=== PATIENT | female | born 1995 | race African-American/Black ===

== ENCOUNTER 2016-09-03 12:59 | Emergency (ER) | payer OTHER ==
[2016-09-03 13:03] VITALS: BP 130/76; PULSE 80; TEMP 98.4; BMI 28.3
[2016-09-03 14:18] LABS: URINE APPEARANCE SLCLOUDY; URINE BILIRUBIN NEGATIVE (NEGATIVE); URINE COLOR YELLOW; URINE GLUCOSE (UA) NEGATIVE (NEGATIVE); URINE KETONE NEGATIVE (NEGATIVE); URINE NITRITE NEGATIVE (NEGATIVE); URINE UROBILINOGEN NEGATIVE E.U./dl (0.2-1.0)
--- NOTE | 2016-09-03 14:50 | PDOC ---
History of Present Illness - General Chief Complaint: Urinary Problem Stated Complaint: NAUSEA, ABD PAIN Time Seen by Provider: 09/03/16 14:40 History Source: Patient Exam Limitations: No Limitations - History of Present Illness Initial Comments: CHIEF COMPLAINT: 21 y/o afebrile female with no significant PMH c/o nausea and dysuria. HISTORY OF PRESENT ILLNESS: The patient states she has had symptoms for a few days and admits she recently had sexual intercourse for the first time and symptoms started afterwards. The patient also admits to frequency. She denies f/c, v/d, abd pain, back pain, hematuria. Vital signs on arrival are within normal limits. REVIEW OF SYSTEMS: GENERAL/CONSTITUTIONAL: No fever/chills. No weakness. No weight change. HEAD, EYES, EARS, NOSE AND THROAT: No change in vision. No ear pain or discharge. No sore throat. CARDIOVASCULAR: No chest pain or shortness of breath. RESPIRATORY: No cough, wheezing, or hemoptysis. GASTROINTESTINAL: +nausea. No abd pain, nausea, vomiting, diarrhea. GENITOURINARY: No dysuria, frequency, or change in urination. MUSCULOSKELETAL: No joint or muscle swelling or pain. No neck or back pain. SKIN: No rash or easy bruising. NEUROLOGIC: No headache, vertigo, loss of consciousness, or loss of sensation. PHYSICAL EXAM: GENERAL: The patient is awake, alert, and fully oriented, in no acute distress. She is well appearing, ambulatory, and in NAD. HEAD: Normal with no signs of trauma. ENT: Pupils equal, round and reactive to light, extraocular movements intact, sclera anicteric, conjunctiva clear. Neck supple. LUNGS: Clear to auscultation bilaterally. Normal excursion. No respiratory distress or use of accessory muscles. CV: RRR, S1/S2, no MRG. Cap refill < 2 sec. ABDOMEN: Soft, non-distended, minimal TTP of suprapubic region, no hepatomegaly or splenomegaly, no masses. BACK: No CVA TTP b/l. EXTREMITIES: Normal range of motion, no edema. NEUROLOGICAL: Normal speech, normal gait. CN II-XII grossly intact. PSYCH: Normal mood, normal affect. SKIN: Warm, dry, normal turgor, no rashes or lesions noted. Past History - Past Medical History Allergies/Adverse Reactions: Allergies Allergy/AdvReac Type Severity Reaction Status Date / Time No Known Allergies Allergy Verified 09/03/16 13:04 Home Medications: Ambulatory Orders Hydrocodone Bit/Homatropine [Hycodan Syrup] 5 ml PO Q4HWA #120 syrup 04/17/14 Cephalexin Monohydrate [Keflex -] 500 mg PO BID #14 capsule 09/03/16 Other medical history: PATIENT DENIES MEDICAL HISTORY - Psycho/Social/Smoking Cessation Hx Anxiety: No Suicidal Ideation: No Smoking History: Never smoked Have you smoked in the past 12 months: No Hx Alcohol Use: Yes Drug/Substance Use Hx: No Substance Use Type: None *Physical Exam - Vital Signs Last Vital Signs Temp Pulse Resp BP Pulse Ox 98.4 F 80 18 130/76 99 09/03/16 13:01 09/03/16 13:01 09/03/16 13:01 09/03/16 13:01 09/03/16 13:01 ED Treatment Course - ADDITIONAL ORDERS Additional order review: Laboratory Results 09/03/16 14:00 Urine HCG, Qual Negative Medical Decision Making - Medical Decision Making A/P: 21 y/o afebrile female with UTI symptoms. Plan is as follows: 1. UA/culture/hcg UA + for UTI. Will send RX for keflex. Instructed patient to take entire 7 days, drink at least 64oz of water daily and return to the ER with any worsening or concerning symptoms. The patient verbalizes understanding of all instructions, has no further questions and is awaiting discharge. *DC/Admit/Observation/Transfer Diagnosis at time of Disposition: UTI (urinary tract infection) Qualifiers: Urinary tract infection type: acute cystitis Hematuria presence: with hematuria Qualified Code(s): N30.01 - Acute cystitis with hematuria - Discharge Dispostion Disposition: HOME Condition at time of disposition: Good - Prescriptions Prescriptions: Cephalexin Monohydrate [Keflex -] 500 mg PO BID #14 capsule - Patient Instructions Printed Discharge Instructions: DI for Urinary Tract Infection (UTI) Additional Instructions: Discharge Instructions: -An antibiotic was sent to your pharmacy for Urinary Tract Infection; please take entire 7 days -Drink at least 64oz of water daily -REturn to the ER with any worsening or concerning symptoms
[2016-09-03 14:56] LABS: URINE BLOOD 3+ (NEGATIVE); URINE LEUK ESTERASE 2+ (NEGATIVE); URINE PROTEIN 1+ (NEGATIVE)
[2016-09-03 15:48] LABS: URINE BACTERIA RARE /hpf (NONE SEEN); URINE MUCUS RARE; URINE RBC 284 /hpf (0-3); URINE WBC 221 /hpf (3-5)
== END 2016-09-03 15:06 | disposition home or self-care (01) ==
LOC: JERFT 12:59
DX: N30.01 Acute cystitis with hematuria (principal); B96.89 Other specified bacterial agents as the cause of diseases classified elsewhere
CPT/HCPCS: 81003; 81015; 84703; 87086; 87186; 99281-25

== ENCOUNTER 2016-12-07 20:53 | Emergency (ER) | payer OTHER ==
[2016-12-07 21:09] VITALS: BP 118/67; PULSE 71; TEMP 98.7; BMI 28.3
--- NOTE | 2016-12-07 21:43 | PDOC ---
History of Present Illness - General Chief Complaint: Cold Symptoms Stated Complaint: CONgESTION Time Seen by Provider: 12/07/16 21:27 History Source: Patient Exam Limitations: No Limitations - History of Present Illness Initial Comments: 12/07/16 21:43 21 yr female no medical history with cough and productive phlegm for one month. Pt states she felt phlegm stuck in her throat so she came to [facility]. no fever, no chest pain. Pt denies medical history smokes a vapor. denies drug or ETOH use. Pt did not take any meds [employer]. Severity: reports: mild Past History - Past Medical History Allergies/Adverse Reactions: Allergies Allergy/AdvReac Type Severity Reaction Status Date / Time No Known Allergies Allergy Verified 12/07/16 21:07 Home Medications: Ambulatory Orders Albuterol Sulfate Inhaler - [Ventolin HFA Inhaler -] 1 - 2 inh PO QID PRN #1 inhaler 12/07/16 Azithromycin [Zithromax 250mg Tablets -] 250 mg PO UTDICT #6 tab 12/07/16 Benzonatate [Tessalon Pearls -] 200 mg PO TID PRN #42 cap 12/07/16 - Reproductive History LMP comment: 11/20/16 LMP Normal: Yes Is Patient Now?: No - Psycho/Social/Smoking Cessation Hx Anxiety: No Suicidal Ideation: No Smoking History: Current every day smoker (vapors) Have you smoked in the past 12 months: No Hx Alcohol Use: Yes Drug/Substance Use Hx: No Substance Use Type: None Respiratory Specific PMHX - Complaint Specific PMHX Angina: No Bronchitis: No Pneumonia: No Pulmonary Embolus: No TB (Tuberculosis): No Review of Systems - Review of Systems Able to Perform ROS?: Yes Is the patient limited [place]i proficient: No Constitutional: No: Symptoms Reported HEENTM: No: Symptoms Reported Respiratory: Yes: Cough Cardiac (ROS): No: Symptoms Reported ABD/GI: No: Symptoms Reported *Physical Exam - Vital Signs Last Vital Signs Temp Pulse Resp BP Pulse Ox 98.7 F 71 18 118/67 100 12/07/16 21:08 12/07/16 21:08 12/07/16 21:08 12/07/16 21:08 12/07/16 21:08 - Physical Exam General Appearance: Yes: Nourished, Appropriately Dressed HEENT: positive: EOMI, MARICRUZ, Normal ENT Inspection, TMs Normal, Pharynx Normal, Tonsillar Exudate (left tonsil stone ). negative: Pharyngeal Erythema, Tonsillar Erythema Neck: positive: Supple. negative: Tender Respiratory/Chest: positive: Lungs Clear, Normal Breath Sounds. negative: Chest Tender, Rhonchi, Stridor, Wheezing Cardiovascular: positive: Regular Rhythm, Regular Rate Musculoskeletal: positive: Normal Inspection Extremity: positive: Normal Capillary Refill, Normal Inspection, Normal Range of Motion Integumentary: positive: Normal Color, Dry, Warm Neurologic: positive: Fully Oriented, Alert, Normal Mood/Affect, Normal Response , Motor Strength 08/28 ED Treatment Course - RADIOLOGY Radiology Studies Ordered: Category Date Time Status CHEST PA & LAT [RAD] Stat Radiology 12/07/16 21:34 Ordered Medical Decision Making - Medical Decision Making 12/07/16 22:37 cc: cough productive for one month with phlegm no abd pain, denies any heartburn or reflux symptoms afebrile will get CXR r/o pneumonia 12/07/16 22:41 preliminary CXR is negative for infectious process will treat clinically for bronchitis based on symptoms will give tessalon for cough and zpack dc inst discussed with pt and all questions asked and answered *DC/Admit/Observation/Transfer Diagnosis at time of Disposition: Bronchitis - Discharge Dispostion Disposition: HOME Condition at time of disposition: Good - Prescriptions Prescriptions: Benzonatate [Tessalon Pearls -] 200 mg PO TID PRN #42 cap PRN Reason: Cough Albuterol Sulfate Inhaler - [Ventolin HFA Inhaler -] 1 - 2 inh PO QID PRN #1 inhaler PRN Reason: Cough Azithromycin [Zithromax 250mg Tablets -] 250 mg PO UTDICT #6 tab - Referrals Referrals: Neal Jenkins MD [Staff Physician] - - Patient Instructions Additional Instructions: drink pleanty of fluids, water at least 2 liters a day take the prescribed medication as directed tessalon for cough azithromcyin for bronchitis albuterol inhaler as directed for the next 2-3 days follow up with ENT or with your primary doctor for any worsening symptoms avoid any smoking, vaporing can also cause respiratory infections and distress
== END 2016-12-07 22:44 | disposition home or self-care (01) ==
LOC: JERFT 20:53
DX: J40 Bronchitis, not specified as acute or chronic (principal)
CPT/HCPCS: 71020-TC; 84703; 99281-25

== ENCOUNTER 2020-03-08 20:39 | Emergency (ER) | payer OTHER ==
[2020-03-08 20:49] VITALS: BP 114/72; PULSE 87; TEMP 97.5; BMI 27.3
[2020-03-08 21:39] LABS: PH,URINE 7.5 (5.0-8.0); URINE APPEARANCE CLEAR; URINE BILIRUBIN NEGATIVE (NEGATIVE); URINE COLOR YELLOW; URINE GLUCOSE (UA) NEGATIVE (NEGATIVE); URINE KETONE NEGATIVE (NEGATIVE); URINE LEUK ESTERASE NEGATIVE (NEGATIVE); URINE NITRITE NEGATIVE (NEGATIVE); URINE PROTEIN NEGATIVE (NEGATIVE); URINE UROBILINOGEN 0.2 mg/dL (0.2-1.0)
[2020-03-08 21:44] LABS: HCG,QUALITATIVE URINE Negative
== END 2020-03-08 22:18 | disposition home or self-care (01) ==
LOC: JER 20:39
DX: R55 Syncope and collapse (principal)
CPT/HCPCS: 81003; 82962; 84703; 93005; 93010; 99285-25

== ENCOUNTER 2021-04-18 11:43 | Emergency (ER) | payer OTHER ==
[2021-04-18 11:49] VITALS: BP 113/73; PULSE 91; TEMP 99; BMI 28.3
[2021-04-19 23:07] LABS: SARS-CoV-2 NAA Detected (Not Detected)
== END 2021-04-18 13:34 | disposition home or self-care (01) ==
LOC: JER 11:43
DX: U07.1 COVID-19 (principal); R05.1 Acute cough; R09.81 Nasal congestion
CPT/HCPCS: 71046-TC-FY; 87804; 99284-25; C9803; U0003; U0005

== ENCOUNTER 2022-01-01 22:40 | Emergency (ER) | payer OTHER ==
[2022-01-01 22:53] VITALS: BP 117/69; PULSE 74; TEMP 97.8; BMI 28.3
[2022-01-01 23:01] VITALS: RESP 18
[2022-01-01] MEDS ORDERED: DIPHTH,PERTUSS(ACELL),TET 0.5 ML DISP.SYRIN IM ONE ×2 (23:27→23:42)
[2022-01-02] MEDS ORDERED: BACITRACIN 15 GM TUBE TOPICAL OINTMENT TP ONE (00:02)
== END 2022-01-02 00:04 | disposition home or self-care (01) ==
LOC: JER 22:40
PROC: 3E0234Z Introduction of Serum, Toxoid and Vaccine into Muscle, Percutaneous Approach (ICD-10-PCS; principal; 2022-01-01)
DX: S61.203A Unspecified open wound of left middle finger without damage to nail, initial encounter (principal); W26.0XXA Contact with knife, initial encounter
CPT/HCPCS: 90471; 90715; 99284-25

== ENCOUNTER 2024-05-29 10:15 | Emergency (ER) | payer OTHER ==
[2024-05-29 10:28] VITALS: BMI 37.4
[2024-05-29] MEDS ORDERED: FAMOTIDINE 20 MG/50 ML IVPB 20 MG/50 ML MG IVPB ONE (11:44)
[2024-05-29] MEDS ORDERED: ACETAMINOPHEN INJECTION 100 ML ONE (12:24)
[2024-05-29] MEDS ORDERED: ONDANSETRON 4 MG/2 ML VIAL ONE (12:24)
[2024-05-29] MEDS ORDERED: MAG HYDROX/AL HYDROX/SIMETH 30 ML UNIT-DOSE CUP ONE (12:24)
[2024-05-29] MEDS: ONDANSETRON 4 MG/2 ML VIAL IVPUSH ONE (12:45)
[2024-05-29] MEDS: SODIUM CHLORIDE 0.9% 500 ML INFUS.BAG IV ONE (12:49)
[2024-05-29] MEDS: MAG HYDROX/AL HYDROX/SIMETH 30 ML UNIT-DOSE CUP PO ONE (12:49)
[2024-05-29] MEDS: ACETAMINOPHEN 1000 MG/100 ML BAG IVPB ONE (12:50)
[2024-05-29 13:02] LABS: EPI CELLS 17 /uL (0-25.1); HCG,QUALITATIVE URINE Negative; HYALINE CASTS 1 /uL (0-3.1); PH,URINE 5.5 (5.0-8.0); URINE APPEARANCE CLEAR; URINE BACTERIA 1946 /uL (0-1359); URINE BILIRUBIN NEGATIVE (NEGATIVE); URINE COLOR ORANGE; URINE GLUCOSE (UA) NEGATIVE (NEGATIVE); URINE KETONE 1+ (NEGATIVE); URINE LEUK ESTERASE NEGATIVE (NEGATIVE); URINE NITRITE NEGATIVE (NEGATIVE); URINE PROTEIN 1+ (NEGATIVE); URINE RBC 40.4 /uL (0-23.9); URINE WBC 20 /uL (0-25.8)
[2024-05-29 14:39] LABS: HIV INTERPRETATION NEGATIVE (NEGATIVE)
[2024-05-29 15:06] VITALS: BP 107/65; PULSE 82; RESP 16; TEMP 98.5
== END 2024-05-29 15:08 | disposition home or self-care (01) ==
LOC: JER 10:15
PROC: 3E033NZ Introduction of Analgesics, Hypnotics, Sedatives into Peripheral Vein, Percutaneous Approach (ICD-10-PCS; principal; 2024-05-29)
PROC: 3E033GC Introduction of Other Therapeutic Substance into Peripheral Vein, Percutaneous Approach (ICD-10-PCS; 2024-05-29)
DX: R11.2 Nausea with vomiting, unspecified (principal); R19.7 Diarrhea, unspecified; Z20.822 Contact with and (suspected) exposure to COVID-19
CPT/HCPCS: 0241U-QW; 36415; 81003; 84703; 86803; 87086; 87389; 96374; 96375; 99284-25; J0131